=== PATIENT | male | born 1950 | race Caucasian/White ===

== ENCOUNTER 2019-09-05 12:51 | Outpatient (CLI) | payer MEDICARE, SELFPAY ==
--- NOTE | 2019-09-05 | XR_ITS ---
WS: [id number] SHOULDER LEFT TECHNIQUE: 3 views of the left shoulder CLINICAL INFORMATION: SHOULDER DISLOCATION LEFT COMPARISON: None. FINDINGS: Normal acromioclavicular joint. Anterior inferior left glenohumeral dislocation. IMPRESSION: Anterior inferior glenohumeral dislocation
== END 2019-09-05 12:52 | disposition home or self-care (01) ==
LOC: RADOUTREAD 09-06 08:11
PROVIDERS: Visit Provider Nurse Practitioner Family
DX: Z01.89 Encounter for other specified special examinations (principal)

== ENCOUNTER 2019-09-05 13:22 | Emergency (ER) | payer MEDICARE, SELFPAY ==
[2019-09-05 13:42] VITALS: BP 156/101; PULSE 85; RESP 18; TEMP 37.6; O2SAT 95; BMI 32.6
--- NOTE | 2019-09-05 14:21 | XR_ITS ---
WS: [id number] XR shoulder LT min 2V* [id number] REASON FOR EXAM: injury FINDINGS: Subglenoid dislocation of the left shoulder. There is no definite fractures seen. XR/XR shoulder LT min 2V* [id number] IMPRESSION: Subglenoid dislocation of the left shoulder.
--- NOTE | 2019-09-05 14:26 | ED_ITS ---
Entered by Cristiana Rojas, acting as scribe for Christopher Snell MD Sep 05, 2019 13:22 HPI - Extremity Problem General: Chief complaint: Extremity Injury, Upper Stated complaint: Left Shldr Dislocated - Sent from clinic Time Seen by Provider: 09/05/19 14:20 Source: patient and family Mode of arrival: ambulatory Limitations: no limitations History of Present Illness: HPI Narrative: 69 yo pt was walking up the stairs, tripped and hit shoulder on rock wall. pt denies any others symptoms at this time. pt states this started last night. MD Complaint: extremity pain (L shoulder) Onset (ago): day(s) (last night) Pain Consistency: constant Location: left Quality: sharp and constant Radiation: none Relieving factors: nothing Exacerbating factors: range of motion Associated symptoms: Reports no associated symptoms; Deny chest pain, fever(s) or rash Review of Systems Const: Denies: fever, chills, body aches or change in appetite Eyes: Denies: blurry vision or eye discomfort ENMT: Denies: throat pain or dental pain Card: Denies: chest pain Resp: Denies: shortness of breath GI: Denies: abdominal pain, nausea, vomiting or diarrhea : Denies: painful urination Musc: Denies: neck pain or back pain Skin/Breast: Denies: rash Neuro: Denies: headache Psych: Denies: depression Wild/Lymph: Denies: easy bruising All/Imm: Denies: hives PFSH ED PFSH: Social History Smoking and tobacco status: never smoked Physical Exam Const: COMMON NORMALS: no apparent distress, oriented x3 and healthy appearing HENMT: COMMON NORMALS: normocephalic and head/scalp atraumatic HEAD & SCALP: normocephalic and atraumatic Eye: COMMON NORMALS: PERRL and EOMs intact bilaterally PUPIL: Yes PERRL Neck/C-Spine: COMMON NORMALS: full ROM and supple Chest: COMMONS NORMALS: inspection of chest normal and palpation of chest normal Resp: COMMON NORMALS: normal respiratory effort, no retractions, no use of accessory muscles and clear to auscultation bilaterally AUSCULTATION: clear to auscultation bilaterally Cardio: COMMON NORMALS: regular rate, regular rhythm and no murmurs RATE: regular rate RHYTHM: regular rhythm GI: COMMON NORMALS: normal to inspection, nondistended, normoactive bowel sounds, soft to palpation, non-tender and no masses PALPATION: Yes soft Extremity: OTHER: Obvious deformity to right shoulder Neuro: COMMON NORMALS: oriented x3, moves all extremities and no focal motor deficits Psych: COMMON NORMALS: mental status grossly normal, thought process normal and cooperative THOUGHT PROCESS: normal thought process Skin: COMMON NORMALS: no rashes or lesions noted and no wounds GENERAL SKIN EXAM: no rashes or lesions noted Procedures Orthopedic Joint Reduction Joint #1: Time Out Performed: Yes Side: left Joint Reduction Location: shoulder Analgesia: procedural sedation Shoulder Technique Used (if applicable): traction/counter-traction Technique used: traction/counter-traction Post-reduction neuro exam: intact Post-reduction vascular: intact Post Reduction X-Ray Obtained: Yes Post Reduction X-Ray Results: reduced Splint Applied: Yes Patient Tolerated Procedure: well Procedural Sedation Indication: fracture/dislocation reduction ASA Class: I Time of Last PO Intake: 15:40 Preparation: shelter monitor applied, pulse oximeter, supplemental O2 applied, suction/airway equipment at bedside and IV secured IV Propofol dose (mg): 70 Patient Tolerated Procedure: well Complications: none Course Vital Signs: Vital signs: Vital Signs Temperature 99.6 F 09/05/19 13:42 Pulse Rate 79 09/05/19 15:13 Respiratory Rate 14 09/05/19 15:13 Blood Pressure 146/91 09/05/19 15:13 Pulse Oximetry 95 09/05/19 13:42 MDM - Extremity (Nontraumatic) MDM Narrative: Medical decision making narrative: Patient presents here with shoulder dislocation. Patient was sedated here and shoulder was reduced successfully. He is to follow-up with orthopedics in 3 to 5 days and is return if worsening. Discharge Plan Discharge Patient Disposition: Home, Self-Care Clinical Impression: Dislocation of shoulder region Qualifiers: Encounter type: initial encounter Laterality: left Qualified Code(s): S43.005A - Unspecified dislocation of left shoulder joint, initial encounter Condition: Stable Discharge Orders: Discharge Order (Routine); Ordered 09/05/19 Ordered By: Christopher Snell Referrals: Jack Chamberlain DO [Physician] - Discharge Diet: Advance as tolerated Discharge Activity: Resume usual activity Patient Instructions: Shoulder Dislocation (ED) Coding Level of Care Code ED Vest Finisher for Chg Fwd Exam Comprehensive The documentation recorded by the Bob naranjo Bridget Annette, accurately reflects the service I personally performed and the decisions made by me, Christopher Snell MD Sep 05, 2019 13:22
[2019-09-05 14:45] VITALS: RESP 16
[2019-09-05] MEDS: ondansetron 2 mg/ML SDV 2 mL 4 MG IVP (14:45)
[2019-09-05] MEDS: morphine 4 mg/mL SDV 1 mL IVP (14:45)
[2019-09-05] MEDS: LORazepam 2 mg/mL INJ 1 mL 1 MG IVP (14:46)
[2019-09-05 15:13] VITALS: BP 146/91; PULSE 79; RESP 14; O2SAT 98
--- NOTE | 2019-09-05 15:19 | PC.NURSE ---
Patient has elected for left shoulder reduction with conscious sedation. Patient placed on continuous monitoring (SPO2, 3-lead ECG, BP). Suctioning, BVM, and advanced airway equipment available at bedside.
--- NOTE | 2019-09-05 15:30 | XR_ITS ---
WS: [id number] XR shoulder LT 1V [id number] REASON FOR EXAM: post reduction FINDINGS: The subglenoid dislocation has been reduced. There is mild spasm in the shoulder. No definite fractures are seen. XR/XR shoulder LT 1V [id number] IMPRESSION: Successful reduction of the dislocated left shoulder
[2019-09-05] MEDS: propofol 10 mg/mL SDV 20 mL 100 MG IVP (15:39)
[2019-09-05 16:40] VITALS: BP 145/88; PULSE 75; RESP 16; O2SAT 98
--- NOTE | 2019-09-06 11:57 | DCPLANNER ---
manager technology had message to schedule a follow up appointment for patient with ortho. manager technology called the ortho clinic, spoke with Azra, gave clinic patients information, was told that patients information would be printed and reviewed. Clinic will call correctional case manager and patient with appointment information.
--- NOTE | 2019-09-07 10:43 | DCPLANNER ---
Patient has a follow up appointment scheduled for Friday, September 13, 2019 at 1:[address] Giles. Clinic will call patient with appointment information.
--- NOTE | 2019-09-20 08:45 | DCPLANNER ---
Patient did attend appointment scheduled for 09.13.19 with ortho.
== END 2019-09-05 16:43 | disposition home or self-care (01) ==
PROVIDERS: Emergency Provider Emergency Medicine
DX: S43.085A Other dislocation of left shoulder joint, initial encounter (principal); W10.8XXA Fall (on) (from) other stairs and steps, initial encounter
CPT/HCPCS: 12345; 23650; 73020; 73030; 96374; 96375; 99282; 99284; J2060; J2270; J2405; J2704

== ENCOUNTER → 2019-09-13 14:05 | Outpatient (BNVA) | payer MEDICARE, SELFPAY | PROVIDERS: Referring Provider Emergency Medicine; Visit Provider Orthopaedic Surgery | DX: S43.005A Unspecified dislocation of left shoulder joint, initial encounter (principal); X58.XXXA Exposure to other specified factors, initial encounter | CPT/HCPCS: 73030 ==

== ENCOUNTER 2022-04-01 | Outpatient (CLI) | payer MEDICARE, SELFPAY | END 2022-04-01 23:00 | disposition home or self-care (01) | LOC: CDL 04-22 01:34 | PROVIDERS: PCP Family Medicine; Visit Provider Family Medicine | DX: R07.9 Chest pain, unspecified (principal) | CPT/HCPCS: 80053; 80061; 85025 ==

== ENCOUNTER → 2022-04-07 14:16 | Outpatient (BNVA) | payer MEDICARE, SELFPAY | PROVIDERS: PCP Family Medicine; Visit Provider Surgery | DX: Z12.11 Encounter for screening for malignant neoplasm of colon (principal) | CPT/HCPCS: 99024; 99203 ==

== ENCOUNTER 2022-04-09 06:00 | Day surgery (SDC) | payer MEDICARE, SELFPAY ==
[2022-04-08 07:42] VITALS: BMI 32.9
[2022-04-09 06:20] VITALS: BP 149/87; PULSE 54; RESP 18; TEMP 36.2; O2SAT 97
[2022-04-09] MEDS: sodium chloride 0.9% 1,000 ML 30 ML IV (06:33)
--- NOTE | 2022-04-09 06:33 | ANES.PREANE2 ---
Pre-Anesthetic Assessment Height/Weight: Height 1.57 m Weight 81.647 kg Temp Pulse Resp BP Pulse Ox O2 Del Method 97.2 F L 54 L 18 149/87 97 04/09/22 06:20 04/09/22 06:20 04/09/22 06:20 04/09/22 06:20 04/09/22 06:20 04/09/22 06:20 Preop Diagnosis: Screening Operation Date: 04/09/22 07:00 Proposed Procedures p Colonoscopy 45921,Z12.11(Not Applicable) - Satish Heller DO Familial anesthetic complications: None Was Beta Melisa taken within 24 hours: N/A Was Clonidine taken within 24 hours: N/A Last intake: Intake Last Liquid Date 04/08/22 Last Liquid Time 20:00 Last Solid Date 04/07/22 Last Solid Time 20:00 Social Alcohol and Tobacco (Chews tobacco, none this AM) Exam alert, oriented x 3, clear to auscultation bilaterally (LLL exp wheeze. Patient states thats normal.) and regular rate & rhythm Airway Submandibular: within normal limits Cervical ROM: within normal limits Mallampati: Class III Dentition: false History/ROS No significant history except as noted and No significant complaints Pulmonary Asthma, Cough, Exertional Dyspnea, Sleep Apnea and Shortness of Breath (With activity, no SOB this AM) Bronchioplasty 7 years ago CV/HEM Arrythmia None reported Hepatic None reported GI Gastroesophageal Reflux Disease (Just started medication this week. None this AM) Metabolic None reported Musc/skel Lower Back Pain and Osteoarthritis/DJD Neuropsych Neuropathy Anesthetic Plan ASA status: 3 Anesthesia: Anesthesia Evaluation, General and MAC Risk of > 500 ml blood loss (7ml/kg in children): No Medications/Allergies Home Medications Medication Instructions Recorded Confirmed Last Taken Type budesonide-formoterol HFA 160 2 puff inhalation BID 09/13/19 04/09/22 04/09/22 History mcg-4.5 mcg/actuation aerosol inhaler (Symbicort) clobetasol 0.05 % topical cream 1 applic topical BID #45 grams 04/01/22 04/09/22 04/09/22 Rx omeprazole 20 mg capsule,delayed 20 mg PO DAILY #30 caps 04/01/22 04/09/22 04/08/22 Rx release Allergies Allergy/AdvReac Type Severity Reaction Status Date / Time No Known Allergies Allergy Verified 04/09/22 06:14 Current Medications Generic Name Dose Route Start Last Admin Trade Name Freq PRN Reason Stop Dose Admin Sodium Chloride 1,000 mls @ 30 mls/hr 04/09/22 06:15 04/09/22 06:33 Sodium Chloride 0.9% IV 04/10/22 06:14 30 mls/hr .Q24H ROXANNE Administration PFSH Anesthesia Medical History Asthma Psoriasis Surgical History History of appendectomy History of bronchoscopy History of cataract surgery History of intestinal surgery 3 foot of small intestine removed Family History Mother Cancer lung CAD (coronary artery disease) Diabetes Brother Cancer throat Denies family history of Dementia Chronic kidney disease (CKD) Family history of premature coronary artery disease Hypertension Stroke Social History Smoking and tobacco status: never smoked (Chews Tobacco) Alcohol intake: current Alcohol intake frequency: holidays/special occasions only Lives independently: Yes Household members: spouse Marital status: Number of children: 2 Number of grandchildren: 3 Current occupational status: retired 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
[2022-04-09] MEDS: ipratropium-albuterol 3 mL Neb INHALATION (07:01)
[2022-04-09 07:02] VITALS: PULSE 58; RESP 16; O2SAT 97
--- NOTE | 2022-04-09 07:02 | W.PM.OPSUD ---
Surgery/Procedure H&P Update DATE OF PROCEDURE: April 09, 2022 DATE H&P PERFORMED: 04/07/22 PREOP DIAGNOSIS: Screening PLANNED PROCEDURE: Operation Date: 04/09/22 07:00 Proposed Procedures p Colonoscopy 24049,Z12.11(Not Applicable) - Satish Heller DO
[2022-04-09 07:05] VITALS: PULSE 59
[2022-04-09 08:03] VITALS: BP 129/68; PULSE 55; RESP 14; TEMP 36.1; O2SAT 97
[2022-04-09 08:16] VITALS: BP 150/83; PULSE 45; RESP 18; O2SAT 97
--- NOTE | 2022-04-09 13:49 | ANE.PACU2 ---
Inpatient post-anesthesia follow up: Airway intact: Yes Vital signs: Temperature 97.0 F Pulse Rate 45 Respiratory Rate 18 Blood Pressure 150/83 Pulse Oximetry 97 Oxygen Delivery Me thod Room Air Oxygen Flow Rate Fraction of Inspir ed Oxygen Hydration adequate: Yes Nausea and vomiting: No Pain level: 1 Mental status: Baseline
== END 2022-04-09 08:55 | disposition home or self-care (01) ==
PROVIDERS: PCP Family Medicine; Visit Provider Surgery
PROC: 0DJD8ZZ Inspection of Lower Intestinal Tract, Via Natural or Artificial Opening Endoscopic (ICD-10-PCS; CPT 45378; principal; 2022-04-09 07:00)
DX: Z12.11 Encounter for screening for malignant neoplasm of colon (principal); K57.30 Diverticulosis of large intestine without perforation or abscess without bleeding; K64.8 Other hemorrhoids; D12.5 Benign neoplasm of sigmoid colon; F17.220 Nicotine dependence, chewing tobacco, uncomplicated; G47.30 Sleep apnea, unspecified; K21.9 Gastro-esophageal reflux disease without esophagitis
CPT/HCPCS: 45385; 88305; 94640; J0330; J2370; J2704; J3490; J7030

== ENCOUNTER → 2022-04-22 16:18 | Outpatient (BNVA) | payer MEDICARE, SELFPAY | PROVIDERS: PCP Family Medicine; Visit Provider Surgery | DX: Z09 Encounter for follow-up examination after completed treatment for conditions other than malignant neoplasm (principal) | CPT/HCPCS: 99212 ==

== ENCOUNTER 2022-04-30 07:50 | Outpatient (CLI) | payer MEDICARE, SELFPAY ==
--- NOTE | 2022-04-30 08:31 | XR_ITS ---
WS: [id number] Chest 2 views, 04/30/2022 Clinical Data: r/o pneumonia Comparison: None. Findings: No nodules, masses or effusions are seen. The heart is normal. The pulmonary vascularity is not increased. No pneumonia or pneumothorax is seen. The aortic arch and descending thoracic aorta s how tortuosity. XR/XR chest 2V* [id number] Impression: Atherosclerosis.
== END 2022-04-30 07:51 | disposition home or self-care (01) ==
PROVIDERS: PCP Family Medicine; Visit Provider Family Medicine
DX: R05.8 Other specified cough (principal); I70.90 Unspecified atherosclerosis
CPT/HCPCS: 71046

== ENCOUNTER 2022-05-19 08:29 | Outpatient (CLI) | payer MEDICARE, SELFPAY ==
--- NOTE | 2022-05-19 08:34 | ECG_ITS ---
[facility] Test Date: 2022-05-19 Pat Name: Sohail Peoples Department: Room: Gender: Male Slab Inspector: : 1950 Requested By: Emmanuelle Ramirez Order Number: [id number] Navarro MD: Clarisse Hermosillo M.D. Interpretive Statements NAME OF STUDY: LEXISCAN SESTAMIBI STRESS TEST INDICATION: Chest Pain PROCEDURE: At the baseline, the blood pressure was 145/89 mmHg with a heart rate of 54 bpm. The electrocardiogram showed sinus rhythm, normal axis. Nonspecific ST depression. The Lexiscan was infused over a period of 20 seconds. A total of 0.4 milligrams of Lexiscan was infused. The stress phase was continued for a total of 5 minutes. Heart rate at the end of the stress phase was 89 bpm with a blood pressure of 147/92 mmHg. The EKG at the peak infusion revealed sinus rhythm with no significant ST-T wave changes. Sestamibi was injected 20 seconds after the Lexiscan infusion. Blood pressure at the end of the recovery phase was 135/93 mmHg with a heart rate of 88 beats per minute. CONCLUSION: 1. No significant EKG changes with the LexiScan infusion. 2. No LexiScan induced chest pain or cardiac arrhythmia. 3. Normal blood pressure and heart rate response. 4. Sestamibi/sestamibi perfusion scan pending; see separate report. Electronically Signed On 05-23-2022 15:48:00 FORM LAYER by Clarisse Hermosillo M.D. [id number]
--- NOTE | 2022-05-19 08:35 | NMCV_ITS ---
NM valerie perf SPECT r/s* [id number] Sohail Peoples Age: 71 Gender: M : 1950 Exam Date: 05/19/2022 09:20 Ordering Phys: Emmanuelle Ramirez MD Technologist: LATOYA Gleason Exam Location: [facility] Indications: CHEST PAIN STRESS TEST Please see separate stress test report [facility] for full findings IMAGE PROTOCOL Rest/Stress 1 Lexiscan Day Radiopharmaceutical Dose (mCi) Administration Site Administered by Rest: Tc-99m 9.5 IV LATOYA Troncoso Sestamibi Stress:Tc-99m 29.9 IV LATOYA Troncoso Sestamibi Rest: 19-May-2022 60 Discovery 630 Stress: 19-May-2022 30 Discovery 630 0.4mg Lexiscan. Images obtained in supine and prone position. SPECT RESULTS Technical Quality: Excellent Raw Data Analysis: Normal Image Corrections: No attenuation or motion correction applied Summed Stress Score: 6 Summed Rest Score: 12 Summed Difference Score: 0 PERFUSION FINDINGS Medium size perfusion abnormality of moderate severity of mid to apical inferior, mid inferolateral apical lateral, apical septal and apical brannon on rest images with improved tracer uptake on stress images. This is suggestive of attenuation artifact. FUNCTIONAL RESULTS (calculated via Gated SPECT) Stress Image LV EF (%): 64 Stress EDV (mL):99 TID: 0.96 Stress ESV (mL):36 FUNCTIONAL FINDINGS: The left ventricle is normal in size. Transient Ischemia Dilatation of 0.96. There is normal left ventricular systolic function. The left ventricular ejection fraction is normal with a value of 64%. There is normal left ventricular wall thickening. IMPRESSIONS 1. Myocardial perfusion imaging is normal. Attenuation artifact noted in inferior and inferolateral brannon. 2. Overall left ventricular systolic function is normal without regional wall motion abnormalities, LVEF=64%. 3. EKG portion of the study will be reported separately. Clarisse Hermosillo MD (Electronically Signed) Final Date: 21 May 2022 09:39 S
[2022-05-19 08:39] VITALS: BMI 33.0
[2022-05-19] MEDS: regadenoson 0.4 Mg/5 ml Syringe IVP (09:47)
[2022-05-19 10:06] VITALS: BP 135/93; PULSE 85
== END 2022-05-19 08:30 | disposition home or self-care (01) ==
PROVIDERS: PCP Family Medicine; Visit Provider Family Medicine
DX: R07.9 Chest pain, unspecified (principal); I10 Essential (primary) hypertension
CPT/HCPCS: 36415; 78452; 80048; 93017; 96374; A9500; J2785

== ENCOUNTER 2022-06-17 20:00 | Outpatient (CLI) | payer MEDICARE, SELFPAY | END 2022-06-17 20:01 | disposition home or self-care (01) | LOC: SLEEP 06-18 06:57 | PROVIDERS: PCP Family Medicine; Visit Provider Family Medicine | DX: G47.30 Sleep apnea, unspecified (principal) | CPT/HCPCS: 95810 ==

== ENCOUNTER 2022-10-02 08:07 | Outpatient (CLI) | payer MEDICARE, SELFPAY ==
--- NOTE | 2022-10-02 08:22 | XR_ITS ---
WS: [id number] EXAMINATION: XR cervical spine 3V* [id number] REASON FOR EXAM: neck pain, dizziness w/ turning head COMPARISON: None available. ORDER DATE: 10/02/2022 8:22 AM FINDINGS: Generalized degenerative spinal changes are seen including moderate degenerative endplate changes and marginal osteophytes. There is diffuse narrowing of the intervertebral disc spaces from C3 to T1. Th ere is no evidence of acute compression deformities or spondylolisthesis. XR/XR cervical spine 3V* [id number] IMPRESSION: PROMINENT DEGENERATIVE SPINE CHANGE AND SPONDYLOSIS. IF RADICULAR SYMPTOMS ARE PRESENT MAY CONSIDER MR IMAGING FOR FURTHER ASSESSMENT.
--- NOTE | 2022-10-02 08:22 | XR_ITS ---
WS: [id number] EXAMINATION: XR lumbar spine 2-3V* [id number] L-SPINE : 3 views REASON FOR EXAM: tenderness over lumbar vertebrae COMPARISON: 01/03/2008 ORDER DATE: 10/02/2022 8:22 AM FINDINGS: The lumbar vertebral bodies and the disc spaces are normal in width. There is some marginal osteophyt es. There is anterolisthesis of L5 compared with L4 measuring 10.5 mm. In the lumbar vertebra, there is no evidence of compression deformities or spondylolisthesis. XR/XR lumbar spine 2-3V* [id number] IMPRESSION: Anterolisthesis of L5 L5 compared with L4 this is new since previous study
== END 2022-10-02 08:08 | disposition home or self-care (01) ==
LOC: RAD 08:12
PROVIDERS: PCP Family Medicine; Visit Provider Family Medicine
DX: M54.50 Low back pain, unspecified (principal); M54.2 Cervicalgia; R42 Dizziness and giddiness; M47.812 Spondylosis without myelopathy or radiculopathy, cervical region
CPT/HCPCS: 72040; 72100

== ENCOUNTER 2022-10-22 08:14 | Outpatient (CLI) | payer MEDICARE, SELFPAY ==
--- NOTE | 2022-10-22 08:45 | MR_ITS ---
WS: [id number] MRI CERVICAL SPINE NONCONTRAST TECHNIQUE: Sagittal T1, T2 and STIR imaging. Axial T2, gradient, and fiesta imaging. CLINICAL INFORMATION: neck pain, dizziness, abnormal xr COMPARISON: None. FINDINGS: Straightening of the normal cervical lordosis. Mild spondylitic changes. Disc bulging worse at C3-C4, C4-C5, and C7-T1. C2-C3: Mild facet arthropathy. Spinal canal and foramen are patent. C3-C4: Slight retrolisthesis C3 on C4. Mild central canal stenosis. Moderate facet arthropathy. Sever e LEFT and moderate RIGHT bony foraminal narrowing. Mild facet arthropathy. C4-C5: Disc osteophyte complex with central protrusion. Indentation on cervical cord. Mild to moderat e central canal stenosis. Small amount of myelomalacia in the cervical cord at this level. Moderate t o severe RIGHT and mild LEFT foraminal narrowing. Mild facet arthropathy. C5-C6: Disc osteophyte complex with endplate ridging. Moderate RIGHT and mild to moderate LEFT bony f oraminal narrowing. Slight contact of the cervical cord. C6-C7: Disc osteophyte protrusion with slight contact of the cervical cord. Mild central canal stenos is. Moderate RIGHT and no significant LEFT foraminal narrowing. C7-T1: Mild bilateral bony foraminal narrowing. Spinal canal is patent. Visualized brain stem structures: Normal. Prevertebral soft tissues: Normal. MR/MR cervical spin wo con* [id number] IMPRESSION: 1. Straightening of the normal cervical lordosis. Mild spondylitic changes. 2. Mild to moderate central canal stenosis C4-C5 with small central disc osteo phyte protrusion. Slight indentation on cervical cord with a small amount of my elomalacia. 3. RIGHT pericentral disc osteophyte protrusion C5-C6 with slight indentation on cervical cord. Central disc osteophyte protrusion C6-C7 with slight contact of the cervical cord. Mild central canal stenosis at these levels. 4. Moderate to severe bony foraminal narrowing worse at LEFT C3-C4, RIGHT C4-C 5, moderate RIGHT C5-C6, and moderate RIGHT C6-C7 5. Moderate facet arthropathy worse at C3-C4, C4-C5, and LEFT C5-C6
== END 2022-10-22 08:15 | disposition home or self-care (01) ==
PROVIDERS: PCP Family Medicine; Visit Provider Family Medicine
DX: M47.812 Spondylosis without myelopathy or radiculopathy, cervical region (principal); M48.02 Spinal stenosis, cervical region; M50.221 Other cervical disc displacement at C4-C5 level
CPT/HCPCS: 72141

== ENCOUNTER → 2022-10-28 09:02 | Outpatient (BNVA) | payer MEDICARE, SELFPAY | PROVIDERS: PCP Family Medicine; Referring Provider Family Medicine; Visit Provider Orthopaedic Surgery | DX: M47.812 Spondylosis without myelopathy or radiculopathy, cervical region (principal) | CPT/HCPCS: 72050; 99204 ==

== ENCOUNTER → 2022-11-27 09:42 | Outpatient (BNVA) | payer MEDICARE, SELFPAY | PROVIDERS: PCP Family Medicine; Visit Provider Anesthesiology Pain Medicine | DX: M47.12 Other spondylosis with myelopathy, cervical region (principal); M47.812 Spondylosis without myelopathy or radiculopathy, cervical region; M43.16 Spondylolisthesis, lumbar region; G95.89 Other specified diseases of spinal cord | CPT/HCPCS: 99204 ==

== ENCOUNTER → 2024-02-03 14:14 | Outpatient (BNVA) | payer MEDICARE, SELFPAY | PROVIDERS: PCP Family Medicine; Visit Provider Family Medicine | DX: I10 Essential (primary) hypertension (principal) | CPT/HCPCS: 80053; 80061 ==

== ENCOUNTER → 2024-05-24 12:51 | Outpatient (BNVA) | payer MEDICARE, SELFPAY | PROVIDERS: PCP Family Medicine; Visit Provider Nurse Practitioner Family | DX: S61.012A Laceration without foreign body of left thumb without damage to nail, initial encounter (principal); X58.XXXA Exposure to other specified factors, initial encounter | CPT/HCPCS: 73130 ==

== ENCOUNTER → 2024-05-26 08:11 | Outpatient (BNVA) | payer MEDICARE, SELFPAY | PROVIDERS: PCP Family Medicine; Visit Provider Orthopaedic Surgery | DX: S62.525A Nondisplaced fracture of distal phalanx of left thumb, initial encounter for closed fracture (principal); X58.XXXA Exposure to other specified factors, initial encounter | CPT/HCPCS: 73130; 99203 ==

== ENCOUNTER → 2024-06-07 07:51 | Outpatient (BNVA) | payer MEDICARE, SELFPAY | PROVIDERS: PCP Family Medicine; Visit Provider Orthopaedic Surgery | DX: S62.525A Nondisplaced fracture of distal phalanx of left thumb, initial encounter for closed fracture (principal); X58.XXXA Exposure to other specified factors, initial encounter | CPT/HCPCS: 73130; 99213 ==

== ENCOUNTER → 2024-08-01 09:10 | Outpatient (BNVA) | payer MEDICARE, SELFPAY | PROVIDERS: PCP Family Medicine; Visit Provider Family Medicine | DX: I10 Essential (primary) hypertension (principal) | CPT/HCPCS: 80053; 80061 ==

== ENCOUNTER → 2024-09-07 09:31 | Outpatient (BNVA) | payer MEDICARE, SELFPAY | PROVIDERS: PCP Family Medicine; Visit Provider Nurse Practitioner Family | DX: L21.8 Other seborrheic dermatitis (principal); L30.8 Other specified dermatitis; L81.0 Postinflammatory hyperpigmentation; L57.8 Other skin changes due to chronic exposure to nonionizing radiation; L82.0 Inflamed seborrheic keratosis; L53.8 Other specified erythematous conditions; L29.89 Other pruritus; D48.5 Neoplasm of uncertain behavior of skin | CPT/HCPCS: 11102; 17110; 99204 ==